=== PATIENT | male | born 1950 | race Caucasian/White ===

== ENCOUNTER 2021-12-08 21:36 | Emergency (ER) | payer MEDICARE ==
[~2021-12-08] VITALS: Ht 165.1 cm; Wt 77.1 kg
[2021-12-08] MEDS ORDERED: GLIPIZIDE 10 MG10 MG PO (22:00)
[2021-12-08] MEDS ORDERED: ZESTRIL40 MG PO (22:01)
[2021-12-08] MEDS ORDERED: CARVEDILOL25 MG PO (22:01)
[2021-12-08] MEDS ORDERED: VITAMIN D310 MC2 PO (22:01)
[2021-12-08] MEDS ORDERED: ASA81BEC PO (22:01)
[2021-12-08] MEDS ORDERED: TYLENOL EXTRA500 MG PO (22:02)
[2021-12-08] MEDS ORDERED: VITAMIN B-121000 MC2 PO (22:02)
[2021-12-08] MEDS ORDERED: SINGULAIR 10 MG10 MG PO (22:03)
[2021-12-08] MEDS ORDERED: FLOMAX0.4 MG PO (22:03)
[2021-12-08] MEDS ORDERED: PROSCAR 5MG TABL5 M1 PO (22:04)
[2021-12-08] MEDS ORDERED: LIPITOR10 MG PO (22:04)
[2021-12-08] MEDS ORDERED: ZANAFLEX4 M1 PO (22:05)
[2021-12-08] MEDS ORDERED: DESYREL150 MG PO (22:05)
[2021-12-08] MEDS ORDERED: RELAFEN750 M1 PO (22:05)
[2021-12-08 23:59] LABS: ABSOLUTE BASOPHILS 0.1 thou/uL (0.0-0.2); ABSOLUTE EOSINOPHILS 0.1 thou/uL (0.0-0.7); ABSOLUTE LYMPHOCYTES 1.3 thou/uL (0.8-5.3); ABSOLUTE MONOCYTES 0.7 thou/uL (0.0-1.2); ABSOLUTE NEUTROPHILS 5.7 thou/uL (1.6-8.1); BASOPHILS 0.8 %; EOSINOPHILS 1.4 %; HEMATOCRIT 37.9 % (42.0-52.0); HEMOGLOBIN 12.7 gm/dL (14.0-18.0); LYMPHOCYTES 16.8 %; MCH 30.9 pg (26.0-34.0); MCHC 33.4 g/dL (28.0-37.0); MCV 92.5 fL (80.0-100.0); MONOCYTES 8.8 %; MPV 9.8 fl. (7.2-11.1); NUCLEATED RBCS 0 /100WBC; PLATELET COUNT* 135 thou/uL (150-400); POLYS 72.2 %; RDW-CV 14.2 % (10.5-14.5); WBC 7.9 thou/uL (4.0-11.0)
[2021-12-09 00:17] LABS: CALCIUM 8.8 mg/dL (8.5-10.1); POTASSIUM 3.7 mmol/L (3.5-5.1)
[2021-12-09 01:02] VITALS: BP 150/81
--- NOTE | 2021-12-10 13:13 | EKG ---
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
== END 2021-12-09 01:03 | disposition home or self-care (01) ==
LOC: M.ERS 21:36
PROVIDERS: Emergency Medicine
DX: I11.0 Hypertensive heart disease with heart failure (principal); I50.9 Heart failure, unspecified; I73.9 Peripheral vascular disease, unspecified; Z79.82 Long term (current) use of aspirin; Z79.891 Long term (current) use of opiate analgesic; Z79.899 Other long term (current) drug therapy; Z88.0 Allergy status to penicillin